=== PATIENT | female | born 1975 | race Caucasian/White ===

== ENCOUNTER → 2016-06-30 | Outpatient (CLI) | payer OTHER | LOC: YCFC.O 12:36 | PROVIDERS: ATTEND Nurse Practitioner Family | DX: N39.0 Urinary tract infection, site not specified (principal) ==

== ENCOUNTER 2020-01-05 19:06 | Emergency (ER) | payer BC ==
[2020-01-05] MEDS ORDERED: CHLORHEXIDINE GLUCONATE 4 % 15 ML UD TOP ONE (19:11)
[2020-01-05] MEDS ORDERED: LIDOCAINE 1% 10 ML VIAL INJ ONE (19:11)
[2020-01-05 19:22] VITALS: BP 129/73; TEMP 98.5; O2SAT 97
[2020-01-05] MEDS ORDERED: TETANUS,DIPHTHERIA,PERTUSSIS 1 EA SYG IM ONE (19:27)
[2020-01-05] MEDS ORDERED: CLINDAMYCIN HCL CAP 150 MG CAP PO ONE (19:27)
[2020-01-05] MEDS ORDERED: NEOMYCIN-BACITRACIN-POLYMYXIN 0.9 GM UD TOP ONE (19:29)
--- NOTE | 2020-01-05 19:30 | ED.PDOC ---
History of Present Illness - General Chief Complaint: Laceration Stated Complaint: RFA laceration Time Seen by Provider: 01/05/20 19:27 Source: patient Exam Limitations: no limitations - History of Present Illness Initial Comments: The patient is a 44-year-old female presented emergency room secondary to sustaining a 2/3 inch laceration to the right forearm after having accidentally hit it on the side of the boat this occurred about 3 hours prior to arrival. It is currently hemostatic now. There is significant numbness surrounding the area currently. Motor function appears to be sustained. Distal sensory appears to be sustained. Timing/Duration: 1-3 hours Severity: mild Improving Factors: nothing Associated Symptoms: denies symptoms Allergies/Adverse Reactions: Allergies Cephalexin [From Keflex] Allergy (Verified 01/05/20 19:27) Ciprofloxacin [From Cipro] Allergy (Verified 01/05/20 19:22) Latex Allergy (Verified 01/05/20 19:22) Penicillins Allergy (Verified 01/05/20 19:22) Sulfa Antibiotics Allergy (Verified 01/05/20 19:22) Sulfamethoxazole w/Trimethoprim [From Bactrim] Allergy (Verified 01/05/20 19:22) Home Medications: Ambulatory Orders Clindamycin HCl 300 mg PO Q8HR #10 cap 01/05/20 Review of Systems - Review of Systems Constitutional: States: no symptoms reported EENTM: States: no symptoms reported Respiratory: States: no symptoms reported Cardiology: States: no symptoms reported Gastrointestinal/Abdominal: States: no symptoms reported Genitourinary: States: no symptoms reported Musculoskeletal: States: no symptoms reported Skin: States: see HPI Neurological: States: see HPI Endocrine: States: no symptoms reported All other Systems: No Change from Baseline Past Medical History (General) - Vaccination History Hx Tetanus, Diphtheria Vaccination: No Hx Influenza Vaccination: Yes - Social History Hx Alcohol Use: Yes - social Family Medical History - Family History Mother Family History: Unknown Physical Exam - Physical Exam General Appearance: Alert, Comfortable, No apparent distress Eye Exam: bilateral normal Ears, Nose, Throat: hearing grossly normal Respiratory: no respiratory distress, no accessory muscle use Cardiovascular/Chest: no edema Peripheral Pulses: radial,right: 2+ Rectal Exam: deferred Extremity: normal range of motion, non-tender 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 Wound was irrigated with water and then with hydrogen peroxide. 2 cc of lidocaine without epinephrine was used as a local anesthetic. 4 simple sutures of 4-0 Ethilon were placed for approximation. The patient received a dose of clindamycin and a tetanus shot here. She will be continued on clindamycin for the next 3 days for prophylaxis. Monitor for any evidence of infection. Sutures need to come out in 7 to 10 days. marsha grey [id number] Departure - Departure Clinical Impression: Accidental laceration Disposition: Discharge to Home or Self Care Condition: Fair Departure Forms: ED Discharge - Pt. Copy, Patient Portal Self Enrollment Instructions: DI for Laceration Repair, Laceration Repair Diet: regular diet Activity: increase activity as tolerated Referrals: Andrew Grey MD [Primary Care Provider] - 1-2 Weeks Prescriptions: Clindamycin HCl 300 mg PO Q8HR #10 cap Home Medications: Ambulatory Orders Clindamycin HCl 300 mg PO Q8HR #10 cap 01/05/20 Additional Instructions: The patient is a 44-year-old female presented emergency room secondary to having sustained a 2/3 inch laceration to the right mid forearm this afternoon. Wound was irrigated with water and then with hydrogen peroxide. 2 cc of lidocaine without epinephrine was used as a local anesthetic. 4 simple sutures of 4-0 Ethilon were placed for approximation. The patient received a dose of clindamycin and a tetanus shot here. She will be continued on clindamycin for the next 3 days for prophylaxis. Monitor for any evidence of infection. Sutures need to come out in 7 to 10 days.
== END 2020-01-05 19:40 | disposition home or self-care (01) ==
LOC: ER 19:06
DX: S51.811A Laceration without foreign body of right forearm, initial encounter (principal); W22.09XA Striking against other stationary object, initial encounter; Z88.1 Allergy status to other antibiotic agents; Z91.040 Latex allergy status; Z88.0 Allergy status to penicillin; Z88.2 Allergy status to sulfonamides; Y92.814 Boat as the place of occurrence of the external cause

== ENCOUNTER 2020-05-20 21:54 | Emergency (ER) | payer BC ==
[2020-05-20] MEDS ORDERED: CYCLOBENZAPRINE TAB (ER DISP) 10 MG TAB PO ONE (23:31)
--- NOTE | 2020-05-20 23:31 | ED.PDOC ---
History of Present Illness - General Time Seen by Provider: 05/20/20 22:33 - History of Present Illness Initial Comments: Patient presents c/o of muscle cramps. Timing/Duration: unsure Associated Symptoms: denies symptoms Allergies/Adverse Reactions: Allergies Cephalexin [From Keflex] Allergy (Verified 01/05/20 19:27) Ciprofloxacin [From Cipro] Allergy (Verified 01/05/20 19:22) Latex Allergy (Verified 01/05/20 19:22) Penicillins Allergy (Verified 01/05/20 19:22) Sulfa Antibiotics Allergy (Verified 01/05/20 19:22) Sulfamethoxazole w/Trimethoprim [From Bactrim] Allergy (Verified 01/05/20 19:22) Home Medications: Ambulatory Orders Clindamycin HCl 300 mg PO Q8HR #10 cap 01/05/20 Cyclobenzaprine HCl [Flexeril] 10 mg PO TID PRN #20 tab 05/20/20 Cyclobenzaprine Tab (ER Disp) [Flexeril Tab (ER Dispense)] 10 mg PO TID PRN #1 tab 05/20/20 Review of Systems - Review of Systems Constitutional: States: no symptoms reported EENTM: States: no symptoms reported Respiratory: States: no symptoms reported Cardiology: States: no symptoms reported Gastrointestinal/Abdominal: States: no symptoms reported Musculoskeletal: States: no symptoms reported Skin: States: no symptoms reported Neurological: States: no symptoms reported Past Medical History (General) - Patient Medical History Hx Stroke: No Hx Dementia: No Hx of COPD: No Hx Cardiac Disorders: No Hx Congestive Heart Failure: No Hx Hypertension: No Hx Thyroid Disease: No Hx Diabetes: No Hx Gastroesophageal Reflux: No - Vaccination History Hx Tetanus, Diphtheria Vaccination: No Hx Influenza Vaccination: Yes - Social History Hx Alcohol Use: Yes - social Family Medical History - Family History Mother Family History: Unknown Physical Exam - Physical Exam General Appearance: Agitated, Alert, Comfortable Ears, Nose, Throat: hearing grossly normal, normal ENT inspection Neck: non-tender, full range of motion, supple, normal inspection Respiratory: chest non-tender, lungs clear, normal breath sounds, no respiratory distress, respiratory distress Cardiovascular/Chest: normal peripheral pulses, regular rate, rhythm Back Exam: normal inspection, no CVA tenderness Extremity: normal range of motion, non-tender, normal inspection Neurologic: no motor/sensory deficits, alert, normal mood/affect, oriented x 3 Skin Exam: normal color, warm/dry, cyanosis Departure - Departure Clinical Impression: Muscle spasm, Cramps, extremity Time of Disposition: 23:28 Disposition: Discharge to Home or Self Care Departure Forms: ED Discharge - Pt. Copy, Patient Portal Self Enrollment Instructions: Muscle Spasms (DC) Referrals: Sharath Hein MD [Primary Care Provider] - 1-2 Weeks Prescriptions: Cyclobenzaprine HCl [Flexeril] 10 mg PO TID PRN #20 tab PRN Reason: MUSCLE CRAMPS Cyclobenzaprine Tab (ER Disp) [Flexeril Tab (ER Dispense)] 10 mg PO TID PRN #1 tab PRN Reason: CRAMPS Home Medications: Ambulatory Orders Clindamycin HCl 300 mg PO Q8HR #10 cap 01/05/20 Cyclobenzaprine HCl [Flexeril] 10 mg PO TID PRN #20 tab 05/20/20 Cyclobenzaprine Tab (ER Disp) [Flexeril Tab (ER Dispense)] 10 mg PO TID PRN #1 tab 05/20/20
[2020-05-21 02:02] VITALS: O2SAT 98
[2020-05-21 02:05] VITALS: BP 134/71; TEMP 98.2
== END 2020-05-21 00:10 | disposition home or self-care (01) ==
LOC: ER 21:54
DX: R25.2 Cramp and spasm (principal); M62.838 Other muscle spasm; Z88.1 Allergy status to other antibiotic agents; Z91.040 Latex allergy status; Z88.0 Allergy status to penicillin; Z88.2 Allergy status to sulfonamides